=== PATIENT | male | born 1940 | race Caucasian/White ===

== ENCOUNTER 2021-05-27 19:37 | Emergency (ER) | payer BC, MEDICARE ==
--- NOTE | 2021-05-27 19:52 | EDM.PDOC ---
ED HPI GENERAL MEDICAL PROBLEM - General Chief Complaint: Cardiovascular Problem Stated Complaint: dizzy spell on the toilet Time Seen by Provider: 05/27/21 19:37 Source of Information: Reports: Patient History Limitations: Reports: No Limitations - History of Present Illness INITIAL COMMENTS - FREE TEXT/NARRATIVE: She comes in the emergency department by ambulance for dizziness. Patient was sitting on the bathroom toilet trying to have a bowel movement was pushing when he became diaphoretic and dizzy and lightheaded. He states that he was unable to have a bowel movement however was dizzy lightheaded and was sweaty. He states that this lasted approximately 5 to 10 minutes. After he got up off the toilet he states that he is better. By that point he states that family members were in route as well as ambulance. He states that the ambulance had put on some oxygen on him however he did not feel that he was short of breath, dizzy lightheaded, or having active chest pain at that point. Patient states he is feels like he is back to his baseline. Patient denies having any active chest pain at all this evening. Patient states he has had this episode happened be ore and then incidentally it was when he was sitting on the toilet as well. He did not seek medical attention at that time frame. He states it has been several months. He states he does have issues with constipation at that time. Onset: Sudden Quality: Reports: Other Severity: Mild Improves with: Reports: None Worsens with: Reports: None Associated Symptoms: Reports: No Other Symptoms - Related Data Allergies Allergy/AdvReac Type Severity Reaction Status Date / Time Helafrq-Amy-Vkc Reductase Allergy UNKNOWN Verified 06/13/16 08:11 Inhibitor Home Meds: Home Meds Aspirin 81 mg PO QAM 06/06/16 [History] Clopidogrel [Plavix] 75 mg PO QAM 06/06/16 [History] Ubidecarenone [Co Q-10] 100 mg PO QAM 06/06/16 [History] Multivitamin with Minerals [Multiple Vitamin] 1 tab PO DAILY 06/11/16 [History] Nitroglycerin [Nitrostat] 0.4 mg SL ASDIRECTED 06/11/16 [History] Past Medical History HEENT History: Reports: Impaired Vision Cardiovascular History: Reports: Stents Gastrointestinal History: Reports: None Hematologic History: Reports: Anemia Oncologic (Cancer) History: Reports: Breast, Malignant Melanoma, Other (See Below) Other Oncologic History: 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 Constitutional: Reports: No Symptoms HEENT: Reports: No Symptoms Respiratory: Reports: No Symptoms Cardiovascular: Denies: Chest Pain, Blood Pressure Problem, Dyspnea on Exertion, Edema, Lightheadedness, Palpitations Endocrine: Reports: No Symptoms GI/Abdominal: Reports: No Symptoms : Reports: No Symptoms Musculoskeletal: Reports: No Symptoms Skin: Reports: No Symptoms Neurological: Reports: No Symptoms Psychiatric: Reports: No Symptoms Hematologic/Lymphatic: Reports: No Symptoms Immunologic: Reports: No Symptoms ED EXAM, GENERAL - Physical Exam Exam: See Below Exam Limited By: No Limitations General Appearance: Alert, WD/WN, No Apparent Distress Head: Atraumatic, Normocephalic Neck: Normal Inspection, Supple, Non-Tender Respiratory/Chest: No Respiratory Distress, Lungs Clear, Normal Breath Sounds, No Accessory Muscle Use, Chest Non-Tender Cardiovascular: Normal Peripheral Pulses, Regular Rate, Rhythm, No Edema GI/Abdominal: Normal Bowel Sounds, Soft, Non-Tender Back Exam: Normal Inspection, Full Range of Motion Extremities: Normal Inspection, Normal Range of Motion, Non-Tender, Normal Capillary Refill Neurological: Alert, Oriented Psychiatric: Normal Affect, Normal Mood Skin Exam: Warm, Dry, Intact, Normal Color Course - Vital Signs Last Recorded V/S: Last Vital Signs Temp 36.7 C 05/27/21 19:45 Pulse 98 05/27/21 19:45 Resp 14 05/27/21 19:45 BP 121/58 L 05/27/21 19:45 Pulse Ox 94 L 05/27/21 19:45 - Orders/Labs/Meds Orders: Active Orders 24 hr Category Date Time Status Chest 1V Frontal [CR] Stat Exams 05/27/21 19:46 Ordered Labs: Laboratory Tests 05/27/21 05/27/21 Range/Units 20:02 20:02 WBC 14.8 H (4.0-10.0) x10^3/uL RBC 4.44 L (4.5-6.0) x10^6/uL Hgb 11.9 L (14.0-18.0) g/dL Hct 36.7 L (40.0-52.0) % MCV 82.7 (78.0-93.0) fL MCH 26.8 (26.0-32.0) pg MCHC 32.4 (32.0-36.0) g/dL RDW Coeff of Princess 13.8 (10.0-15.0) % Plt Count 250 (130-400) x10^3/uL Immature Gran % (Auto) 0.20 (0.00-0.43) % Neut % (Auto) 90.4 H (50.0-80.0) % Lymph % (Auto) 3.2 L (25.0-50.0) % Coleman % (Auto) 6.0 (2.0-11.0) % Eos % (Auto) 0.1 (0.0-4.0) % Baso % (Auto) 0.1 L (0.2-1.2) % Neut # (Auto) 13.4 H (1.8-7.7) x10^3/uL Lymph # (Auto) 0.5 L (1.0-4.8) x10^3/uL Coleman # (Auto) 0.9 H (0.0-0.8) x10^3/uL Eos # (Auto) 0.0 (0.0-0.5) x10^3/uL Baso # (Auto) 0.0 (0.0-0.2) x10^3/uL Immature Gran # (Auto) 0.03 (0.00-0.07) x10^3/uL Sodium 139 (136-145) mmol/L Potassium 4.0 (3.5-5.1) mmol/L Chloride 104 (98-107) mmol/L Carbon Dioxide 24 (21-32) mmol/L Anion Gap 15.0 (5-15) mmol/L BUN 20 H (7-18) mg/dL Creatinine 1.0 (0.70-1.30) mg/dL Est Cr Clr Drug Dosing 54.15 mL/min Estimated GFR (MDRD) > 60 Glucose 105 H (70-99) mg/dL Calcium 8.1 L (8.5-10.1) mg/dL Corrected Calcium 8.6 (8.5-10.1) mg/dL Total Bilirubin 0.4 (0.2-1.0) mg/dL AST 26 (15-37) U/L ALT 28 (16-63) U/L Alkaline Phosphatase 99 (46-116) U/L Troponin I High Sens 16 (<=76) ng/L NT-Pro-B Natriuret Pep 236 (<=450) pg/mL Total Protein 6.6 (6.4-8.2) g/dL Albumin 3.4 (3.4-5.0) g/dL Globulin 3.2 Albumin/Globulin Ratio 1.06 Departure - Departure Time of Disposition: 20:45 Disposition: Home, Self-Care 01 Condition: Good Clinical Impression: Vagal reaction - Discharge Information *PRESCRIPTION DRUG MONITORING PROGRAM REVIEWED*: Not Applicable *COPY OF PRESCRIPTION DRUG MONITORING REPORT IN PATIENT ESTER: Not Applicable Instructions: Near-Syncope, [id number] Referrals: Adilene Pena PRODUCTION REPAIRER [Primary Care Provider] - Forms: ED Department Discharge Additional Instructions: 1. rest 2. increase your water intake 3. Continue all at home medications 4. Activity and diet as tolerated 5. Can take over the counter Tylenol for any pain or discomfort 6. Follow up with PCP if symptoms continue, return, or progress 7. Call with any questions or concerns Sepsis Event Note (ED) - Focused Exam Vital Signs: Vital Signs Temp Pulse Resp BP Pulse Ox 05/27/21 19:45 36.7 C 98 14 121/58 L 94 L - My Orders Last 24 Hours: My Active Orders 05/27/21 19:46 Chest 1V Frontal [CR] Stat - Assessment/Plan Last 24 Hours: My Active Orders 05/27/21 19:46 Chest 1V Frontal [CR] Stat Assessment:: 1. vasal vagal response while using the toilet Plan: 1. Labs completed in the ER. Results reviewed with the patient 2. IV initiated in the emergency department 3. IV fluids provided 4. Chest xray completed in ER. Results reviewed with the patient 5. EKG was completed in ambulance- sinus rhythm. 7. Patient and nursing staff was updated regarding the plan of care 8. Education provided the patient regarding activity, diet, rest, [id number] medication modalities, and follow-up care was provided 9. Patient and family are agreeable to the above plan of care 10. All questions and concerns were addressed with the patient and family prior to discharge
[2021-05-27 20:25] VITALS: BP 121/58; PULSE 98
[2021-05-27 20:40] LABS: CHLORIDE,CL 104 mmol/L (98-107); SODIUM,NA 139 mmol/L (136-145)
== END 2021-05-27 20:52 | disposition home or self-care (01) ==
LOC: VM.ED 19:37
DX: R55 Syncope and collapse (principal); R42 Dizziness and giddiness; Z88.8 Allergy status to other drugs, medicaments and biological substances; Z79.899 Other long term (current) drug therapy
CPT/HCPCS: 36415; 71045; 80053; 83880; 84484; 85025; 99283; 99284-25

== ENCOUNTER 2021-08-07 12:32 | Emergency (ER) | payer BC ==
[2021-08-07 12:48] VITALS: BP 108/60; PULSE 62
--- NOTE | 2021-08-07 15:35 | EDM.PDOC ---
ED HPI GENERAL MEDICAL PROBLEM - General Chief Complaint: General Time Seen by Provider: 08/07/21 12:35 Source of Information: Reports: Patient, Family History Limitations: Reports: No Limitations - History of Present Illness INITIAL COMMENTS - FREE TEXT/NARRATIVE: Pt. presents to ER with complaints of intermittent lightheadedness. He states that the symptoms have been present for 4-5 months. He states that he had a normal MRI last week and underwent a carotid US recently as well which did not show any level of stenosis that would be contributing to his symptoms. He states that he also recent had "labwork" and an EKG which he states were within normal limits. He states that he has lightheadedness particularly when he is going from lying to sitting and sitting to standing. He states that his lisinopril was increased by cardiology within the past few months. Denies any current chest pain, shortness of breath, lightheadedness, palpitations, problems with speech or ambulation, headache, fever, chills, nausea, vomiting, diarrhea, sore throat, cough or congestion. Pt. presents to ER because is is "flying to [place]" today and is concerned they no obvious cause for his symptoms have been found. He states that his urged him to "stop on the way to the airport". Associated Symptoms: Denies: Confusion, Chest Pain, Cough, cough w sputum, Diaphoresis, Fever/Chills, Headaches, Loss of Appetite, Malaise, Nausea/Vomiting, Rash, Seizure, Shortness of Breath, Syncope, Weakness - Related Data Allergies Allergy/AdvReac Type Severity Reaction Status Date / Time Lwssvdn-WAP-TqU Reductase Allergy UNKNOWN Verified 08/07/21 12:54 Inhibitor [Dmiankx-Ddw-Scd Reductase Inhibitor] Home Meds: Home Meds Aspirin 81 mg PO QAM 06/06/16 [History] Clopidogrel [Plavix] 75 mg PO QAM 06/06/16 [History] Ubidecarenone [Co Q-10] 100 mg PO QAM 06/06/16 [History] Multivitamin with Minerals [Multiple Vitamin] 1 tab PO DAILY 06/11/16 [History] Nitroglycerin [Nitrostat] 0.4 mg SL ASDIRECTED 06/11/16 [History] Past Medical History HEENT History: Reports: Impaired Vision Cardiovascular History: Reports: Stents Gastrointestinal History: Reports: None Hematologic History: Reports: Anemia Oncologic (Cancer) History: Reports: Breast, Malignant Melanoma, Other (See Below) Other Oncologic History: 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 and lymph nodes with left breast and nodes removed Dermatologic History: Reports: Melanoma - Infectious Disease History Infectious Disease History: Reports: Chicken Pox, Measles, Mumps - Past Surgical History HEENT Surgical History: Reports: None Cardiovascular Surgical History: Reports: Coronary Artery Stent, Vascular Surgery, Other (See Below) Other Cardiovascular Surgeries/Procedures: stents placed in leg GI Surgical History: Reports: Appendectomy Oncologic Surgical History: Reports: Mastectomy Dermatological Surgical History: Reports: Skin Biopsy Social & Family History - Family History Family Medical History: No Pertinent Family History - Tobacco Use Tobacco Use Status *Q: Unknown Ever Used Tobacco - Caffeine Use Caffeine Use: Reports: Coffee ED ROS GENERAL - Review of Systems Review Of Systems: See Below Constitutional: Reports: No Symptoms HEENT: Reports: No Symptoms Respiratory: Reports: No Symptoms Cardiovascular: Reports: No Symptoms Endocrine: Reports: No Symptoms GI/Abdominal: Reports: No Symptoms : Reports: No Symptoms Musculoskeletal: Reports: No Symptoms Skin: Reports: No Symptoms Neurological: Reports: No Symptoms Psychiatric: Reports: No Symptoms Hematologic/Lymphatic: Reports: No Symptoms Immunologic: Reports: No Symptoms ED EXAM, GENERAL - Physical Exam Exam: See Below General Appearance: Alert, WD/WN, No Apparent Distress Eye Exam: Bilateral Eye: EOMI, Normal Fundi, PERRL Ears: Normal External Exam, Normal Canal, Hearing Grossly Normal, Normal TMs Ear Exam: Bilateral Ear: Auricle Normal, Canal Normal, TM normal Nose: Normal Inspection, No Blood Throat/Mouth: Normal Inspection, Normal Lips, Normal Teeth, Normal Gums, Normal Oropharynx, Normal Voice, No Airway Compromise Head: Atraumatic, Normocephalic Neck: Normal Inspection, Supple, Non-Tender, Full Range of Motion Respiratory/Chest: No Respiratory Distress, Lungs Clear, Normal Breath Sounds, No Accessory Muscle Use, Chest Non-Tender Cardiovascular: Normal Peripheral Pulses, Regular Rate, Rhythm, No Edema, No Gallop, No JVD, No Murmur, No Rub Peripheral Pulses: 4+: Radial (L) GI/Abdominal: Soft, Non-Tender, No Organomegaly, No Distention, No Mass (Male) Exam: Deferred Rectal (Males) Exam: Deferred Back Exam: Normal Inspection, Full Range of Motion Extremities: Normal Inspection, Normal Range of Motion, Non-Tender, No Pedal Edema, Normal Capillary Refill Neurological: Alert, Oriented, CN II-XII Intact, Normal Cognition, Normal Gait, Normal Reflexes, No Motor/Sensory Deficits, Other (No pronator drift. 5/5 strength in upper and lower extremities. No facial droop. Speech fluent.). No: Disoriented, Memory Loss Remote Events, Memory Loss Recent Events Psychiatric: Normal Affect, Normal Mood Skin Exam: Warm, Dry, Intact, Normal Color #1 Interpretation Comparison: No Change Course - Vital Signs Last Recorded V/S: Last Vital Signs Temp 37.9 C 08/07/21 12:35 Pulse 62 08/07/21 12:35 Resp 14 08/07/21 12:35 BP 108/60 08/07/21 12:35 Pulse Ox 97 08/07/21 12:35 - Orders/Labs/Meds Orders: Active Orders 24 hr Category Date Time Status EKG Documentation Completion [RC] STAT Care 08/07/21 14:05 Active Departure - Departure Time of Disposition: 13:15 Disposition: Home, Self-Care 01 Clinical Impression: Episodic lightheadedness - Discharge Information Instructions: Dizziness, [id number] Referrals: Adilene Pena MULTIPLE SLIDE OPERATOR [Primary Care Provider] - Forms: ED Department Discharge Additional Instructions: Follow-up in clinic as needed. Return to ER if you have chest pain, shortness of breath, or decreased level of consciousness. Sepsis Event Note (ED) - Focused Exam Vital Signs: Vital Signs Temp Pulse Resp BP Pulse Ox 08/07/21 12:35 37.9 C 62 14 108/60 97 - Problem List Review Problem List Initiated/Reviewed/Updated: Yes - My Orders Last 24 Hours: My Active Orders 08/07/21 14:05 EKG Documentation Completion [RC] STAT - Assessment/Plan Last 24 Hours: My Active Orders 08/07/21 14:05 EKG Documentation Completion [RC] STAT Plan: Pt. refused any workup at this time. He states that he is not experiencing any symptoms at this time, and stated that he "just had tests". He was informed that there could be changes from day to day. He still refused. Possible causes for episodic lightheadedness were discussed. He is advised to return to ER if he has palpitations, chest pain, lightheadedness, shortness of breath, problems walking/speaking or problems with extremity/facial numbness.
== END 2021-08-07 13:11 | disposition home or self-care (01) ==
LOC: VM.ED 12:32
DX: R42 Dizziness and giddiness (principal); Z88.8 Allergy status to other drugs, medicaments and biological substances; Z79.82 Long term (current) use of aspirin; Z79.02 Long term (current) use of antithrombotics/antiplatelets
CPT/HCPCS: 99284-25